=== PATIENT | female | born 1980 | race Caucasian/White ===

== ENCOUNTER 2016-07-29 17:57 | Emergency (ER) | payer SELFPAY ==
[~2016-07-29] VITALS: Ht 167.6 cm; Wt 65.8 kg
[2016-07-29 18:22] VITALS: BP 151/94
[2016-07-29] MEDS ORDERED: ASPIRIN 325 MG TAB PO ONE (19:55)
--- NOTE | 2016-07-29 19:56 | NUR ---
35 Y/O PT PRESENTS TO ER W/C/O RIGHT SIDED NECK PAIN X2 DAYS.PT DENIES ANY INJURY OR TRAUMA. NO S/S OF DISTRESS NOTED AT THE MOEMENT. ER MD AT BEDSIDE.
[2016-07-29 20:39] LABS: BASOPHILS # (AUTO) 0.1 K/uL (0.00-0.22); BASOPHILS % (AUTO) 0.9 % (0.0-2.0); EOSINOPHILS # (AUTO) 0.1 K/uL (0-0.4); EOSINOPHILS % (AUTO) 0.7 % (0.0-4.0); HEMATOCRIT 40.3 % (36-48); LYMPHOCYTES # (AUTO) 1.8 K/uL (2.5-16.5); LYMPHOCYTES % (AUTO) 19.6 % (20.5-51.1); MEAN CORPUSCULAR HEMOGLOBIN 27 pg (27-31); MEAN CORPUSCULAR HGB CONC 32 g/dL (33-37); MEAN CORPUSCULAR VOLUME 83 fL (80-94); MONOCYTES # (AUTO) 0.4 K/uL (0.8-1.0); MONOCYTES % (AUTO) 4.5 % (1.7-9.3); NEUTROPHILS # (AUTO) 6.6 K/uL (1.8-7.7); NEUTROPHILS % (AUTO) 74.3 % (42.2-75.2); PLATELET COUNT (AUTO) 245 K/uL (140-450); RED BLOOD CELL COUNT(AUTO) 4.85 MIL/uL (4.20-5.40); RED CELL DISTRIBUTION WIDTH 12.5 % (11.6-13.7)
[2016-07-29 20:50] LABS: ANION GAP 12.9 (8-16); CALCIUM 9.4 mg/dL (8.5-10.1); CARBON DIOXIDE 27.4 mmol/L (21-32); CREATININE 0.6 mg/dL (0.6-1.3); POTASSIUM 4.3 mmol/L (3.5-5.1)
[2016-07-29 20:57] LABS: ALBUMIN 4.5 g/dL (3.4-5.0); TOTAL BILIRUBIN 0.5 mg/dL (0.0-1.0); TOTAL PROTEIN, SERUM 7.9 g/dL (6.4-8.2)
[2016-07-29 21:30] VITALS: BP 98/61
--- NOTE | 2016-07-29 21:30 | NUR ---
Patient discharged with v/s stable. Written and verbal after care instructions given and explained. Patient alert, oriented and verbalized understanding of instructions. Ambulatory with steady gait. All questions addressed prior to discharge. ID band removed. Patient advised to follow up with PMD IN 2 DAYS OR RETURN TO ER IF CONDITION WORSENS. Rx of MOTRIN AND ROBAXIN given. Patient educated on indication of medication including possible reaction and side effects. Opportunity to ask questions provided and answered.
== END 2016-07-29 21:30 | disposition home or self-care (01) ==
LOC: MED 17:57
DX: R07.89 Other chest pain (principal); R03.0 Elevated blood-pressure reading, without diagnosis of hypertension
CPT/HCPCS: 36415; 71010; 80053; 81002; 81025; 83880; 84484; 85025; 93005; 99285